=== PATIENT | female | born 1960 | race Caucasian/White ===

== ENCOUNTER → 2022-07-10 10:18 | Outpatient (BNVA) | payer OTHER, SELFPAY | PROVIDERS: PCP Internal Medicine; Visit Provider Student in an Organized Health Care Education/Training Program | DX: Z13.89 Encounter for screening for other disorder (principal) ==

== ENCOUNTER 2022-10-16 13:53 | Outpatient (AMB) | payer OTHER, SELFPAY ==
[2022-10-16 14:10] VITALS: BP 126/82; PULSE 90; TEMP 36.7; O2SAT 95; BMI 41.2
--- NOTE | 2022-10-16 14:10 | A.OFFVIS_ITS ---
Intake Vital Signs 10/16/22 14:10 Height 5 ft 2 in Weight 225 lb 8.526 oz BMI 41.2 BP 126/82 Blood Pressure Location Rt brachial Position Sitting Pulse 90 Pulse Source Pulse Oximeter Temp 98.0 F Temp Source Skin Pulse Oximetry (%) 95 Intake Visit Reasons: RA Intake Note: Pt seen today for RA follow up. Rehabilitation Worker Required: No Accompanied by: Self / Same As Patient Allergies aspirin Allergy (Mild, Verified 10/16/22 14:11) Unknown trazodone Allergy (Mild, Verified 10/16/22 14:11) Unknown Medication List - Last Reconciled 10/16/22 by Lennox Osullivan MD famotidine 40 mg PO BEDTIME PRN folic acid 1 mg PO DAILY hydroxychloroquine two tab daily alternating with one tab daily methotrexate sodium 20 mg (8 x 2.5 mg) PO QWEEK nortriptyline 10 - 20 mg PO BEDTIME omeprazole 20 mg PO DAILY prednisone 5 mg PO DAILY PRN sulfasalazine 1,000 mg (2 x 500 mg) PO BID HPI HPI Comments History of Present Illness Details 62-year-old female with seropositive RA returns for follow-up. Doing better overall after restarting methotrexate. She is currently on methotrexate 8 tabs once weekly split dose, sulfasalazine 1000 mg Twice daily and hydroxychloroquine 400 mg daily alternating with 200 mg daily. States that since starting methotrexate she feels improvement with regards to her joint pain. She continues to get intermittent flares of pain in her wrists, toes. But better overall than last visit. Has not use prednisone since last visit Initial history: This is a 62-year-old female with a past medical history of rheumatoid arthritis who presents as a new patient. Her previous parking lot manager left the practice. Patient stated that she was diagnosed 2005 and she was on hydroxychloroquine and sulfasalazine for many years with good control of her RA. She was also on ibuprofen daily. Around 2014 methotrexate was added due to incomplete control of her RA with good results. Her RA has been fairly stable until the last 1-2 years when she started having GI upset. Methotrexate was discontinued around December 2021, switched to leflunomide. Patient had an EGD and esophageal stricture was found as well as the gastric ulcer. A sulfa gel stricture was dilated. Ibuprofen was discontinued and patient was started on omeprazole with good control of her symptoms. No longer has GI upset. Over the last 5-6 months patient's RA has been more active. She gets almost weekly flares affecting different joints such as her ankles, feet, elbows, wrist s, shoulders. Now she takes prednisone 10 mg once or twice a week with good control of her symptoms. [facility], [facility] Medical History Esophageal stricture Gastric ulcer Rheumatoid arthritis Squamous cell carcinoma of left shoulder Surgical History H/O tubal ligation S/P dilatation of esophageal stricture Family History Mother Diabetes Lung cancer Sister Thyroid disease Dementia Brother COPD (chronic obstructive pulmonary disease) Father HTN (hypertension) Colon cancer Social History Household Members: Significant Other Alcohol intake: current Patient Tobacco Use Status: Former Tobacco user Current occupational status: employed Current occupation: senior supplier quality engineer for [employer] Review of Systems Resp Reports no additional complaints Musc Reports arthralgias, Reports joint swelling and Reports stiffness Physical Exam Vital Signs: Last Vital Signs Temp 98.0 F 10/16/22 14:10 Pulse 90 10/16/22 14:10 BP 126/82 10/16/22 14:10 Pulse Ox 95 10/16/22 14:10 BMI result Body Mass Index 41.2 Const General: cooperative, healthy appearing and comfortable Nutritional Appearance: obese morbidly obese Orientation/consciousness: patient oriented x3 Limitations: no limitations HEENT Head: Yes normocephalic and Yes atraumatic Resp Effort & Inspection: normal respiratory effort and able to speak in complete sentences Neuro General: patient oriented x3 Extrem Other: Bilateral wrist pain with full flexion and extension No pain at the MCPs or PIPs bilaterally. Right 2nd MTP tenderness Negative MCP squeeze test bilaterally Right elbow pain with full flexion and full extension Normal range of motion of both shoulders Normal nailfold capillaroscopy Assessment & Plan Assessment & Plan (1) Rheumatoid arthritis: Comment: +RF+CCP dx around 2005 SSZ + HCQ + Ibuprofen started initially then MTX added around 2014 MTX DC 12/29 due to Gastric ulcers, switched to leflunomide ineffective MTX restarted 07/2022 effective Code(s): M06.9 - Rheumatoid arthritis, unspecified Qualifiers: Rheumatoid arthritis location: multiple sites Rheumatoid factor presence: unspecified presence Qualified Code(s): M06.9 - Rheumatoid arthritis, unspecified Plan: This is a 62-year-old female with rheumatoid arthritis who presents for follow- up. Her RA is fairly well controlled on methotrexate 20 mg weekly split dose, sulfasalazine 1000 mg Twice daily and hydroxychloroquine 200 mg daily alternating with 400 mg daily. Labs done but not received Her RA is fairly well controlled on current regimen. If labs show significantly elevated inflammatory markers will consider increasing methotrexate to 25 mg weekly. Infectious screening: Hepatitis panel T spot negative 2022 Labs before next visit in 3 months (2) High risk medication use: Code(s): Z79.899 - Other supervisor intermediates (current) drug therapy Plan: Side effects of methotrexate were discussed with the patient in detail including oral ulcers, elevated LFTs, abdominal discomfort, and possible pancytopenia is. Will monitor patient for side effects with frequent lab work. Advised patient to take folic acid daily to prevent complications of methotrexate. Patient is aware of risk of retinopathy with hydroxychloroquine. She is overdue for an eye exam. Patient will schedule an appointment with her cadence specialists soon Plan I spent 27 minutes reviewing patient's chart, evaluating patient, ordering diagn ostic workup, counseling patient and documenting in the chart Orders: Orders Comprehensive Met. Panel 3 Months M06.9 - Rheumatoid arthritis, unspecified C Reactive Protein 3 Months M06.9 - Rheumatoid arthritis, unspecified Complete Blood Count Auto Diff 3 Months M06.9 - Rheumatoid arthritis, unspecified Erythrocyte Sedimentation Rate 3 Months M06.9 - Rheumatoid arthritis, unspecified Coding Level of Care Code Est Pt Level 4 (88552) Diagnoses Rheumatoid arthritis M06.9 Rheumatoid arthritis location: multiple sites Rheumatoid factor presence: unspecified presence High risk medication use Z79.899
== END 2022-10-16 14:48 | disposition home or self-care (01) ==
PROVIDERS: PCP Internal Medicine; Visit Provider Student in an Organized Health Care Education/Training Program
DX: M06.9 Rheumatoid arthritis, unspecified (principal); Z79.899 Other long term (current) drug therapy
CPT/HCPCS: 99214

== ENCOUNTER → 2022-10-16 13:53 | Outpatient (BNVA) | payer OTHER, SELFPAY | PROVIDERS: PCP Internal Medicine; Visit Provider Student in an Organized Health Care Education/Training Program ==

== ENCOUNTER 2023-01-14 15:54 | Outpatient (AMB) | payer OTHER, SELFPAY ==
--- NOTE | 2023-01-14 15:56 | A.OFFVIS_ITS ---
Intake Vital Signs 01/14/23 15:57 Height 5 ft 2 in Weight 232 lb 5.875 oz BMI 42.5 BP 138/86 Blood Pressure Location Rt brachial Position Sitting Pulse 103 H Pulse Source Pulse Oximeter Intake Visit Reasons: RA Intake Note: Pt last seen 10/16/22, presents today for follow up and test results. Mtx 20mg weekly, sulfasalazine bid and Plaquenil. Intrusion Analyst Required: No Accompanied by: Self / Same As Patient Allergies aspirin Allergy (Mild, Verified 01/14/23 16:03) Unknown trazodone Allergy (Mild, Verified 01/14/23 16:03) Unknown Medication List - Last Reconciled 01/14/23 by Lennox Osullivan MD famotidine 40 mg PO BEDTIME PRN folic acid 1 mg PO DAILY hydroxychloroquine two tab daily alternating with one tab daily methotrexate sodium 15 mg (6 x 2.5 mg) PO QWEEK nortriptyline 10 - 20 mg PO BEDTIME omeprazole 20 mg PO DAILY prednisone 5 mg PO DAILY PRN sulfasalazine 1.5 grams (3 x 500 mg) PO BID HPI HPI Comments History of Present Illness Details 62-year-old female with seropositive RA returns for follow-up. She is on methotrexate 15 mg weekly, sulfasalazine 1000 mg Twice daily and hydroxychloroquine. States that over the last 2 months or so she has been having more frequent flare-ups of pain in her wrists and knuckles. She also gets charley horse cramping pain in her ankles, worse at night. She has to get up and walk to get them to go way. She has used prednisone 5 mg about 6 times since last visit. She mentioned that she fell 2 months ago on a slippery floor and broke her right elbow, she was in a sling for a few weeks and did PT. Her elbow pain resolved Initial history: This is a 62-year-old female with a past medical history of rheumatoid arthritis who presents as a new patient. Her previous manufacturing quality inspector left the practice. Patient stated that she was diagnosed 2005 and she was on hydroxychloroquine and sulfasalazine for many years with good control of her RA. She was also on ibuprofen daily. Around 2014 methotrexate was added due to incomplete control of her RA with good results. Her RA has been fairly stable until the last 1-2 years when she started having GI upset. Methotrexate was discontinued around December 2021, switched to leflunomide. Patient had an EGD and esophageal stricture was found as well as the gastric ulcer. A sulfa gel stricture was dilated. Ibuprofen was discontinued and patient was started on omeprazole with good control of her symptoms. No longer has GI upset. Over the last 5-6 months patient's RA has been more active. She gets almost weekly flares affecting different joints such as her ankles, feet, elbows, wrists, shoulders. Now she takes prednisone 10 mg once or twice a week with good control of her symptoms. [facility] Medical History Esophageal stricture Gastric ulcer Squamous cell carcinoma of left shoulder Rheumatoid arthritis Surgical History S/P dilatation of esophageal stricture H/O tubal ligation Family History Mother Diabetes Lung cancer Sister Thyroid disease Dementia Brother COPD (chronic obstructive pulmonary disease) Father HTN (hypertension) Colon cancer Social History Household Members: Significant Other Alcohol intake: current Patient Tobacco Use Status: Former Tobacco user Current occupational status: employed Current occupation: lighting engineer for [employer] Review of Systems Resp Reports no additional complaints Musc Reports arthralgias, Reports joint swelling, Reports muscle cramps and Reports stiffness Physical Exam Vital Signs: Last Vital Signs Pulse 103 H 01/14/23 15:57 BP 138/86 01/14/23 15:57 BMI result Body Mass Index 42.5 Const General: cooperative, healthy appearing and comfortable Nutritional Appearance: obese morbidly obese Orientation/consciousness: patient oriented x3 Limitations: no limitations HEENT Head: Yes normocephalic and Yes atraumatic Resp Effort & Inspection: normal respiratory effort and able to speak in complete sentences Neuro General: patient oriented x3 Extrem Other: Right wrist pain with full flexion and extension No pain at the MCPs or PIPs bilaterally. Right 5th MTP tenderness Left medial malleolus tenderness Negative MCP squeeze test bilaterally Right elbow pain with full flexion and full extension Normal range of motion of both shoulders Normal nailfold capillaroscopy Assessment & Plan Assessment & Plan (1) Rheumatoid arthritis: Comment: +RF+CCP dx around 2005 SSZ + HCQ + Ibuprofen started initially then MTX added around 2014 MTX DC 12/29 due to Gastric ulcers, switched to leflunomide ineffective MTX restarted 07/2022 effective Code(s): M06.9 - Rheumatoid arthritis, unspecified Qualifiers: Rheumatoid arthritis location: multiple sites Rheumatoid factor presence: unspecified presence Qualified Code(s): M06.9 - Rheumatoid arthritis, unspecified Plan: This is a 62-year-old female with rheumatoid arthritis who presents for follow- up. She is on methotrexate 15 mg weekly, sulfasalazine 1000 mg Twice daily and hydroxychloroquine 400 mg daily alternating with 200 mg daily. Since methotrexate was lowered from 20 mg to 15 mg (due to transaminitis), she has been having more frequent flare-ups of RA. Inflammatory markers are high. Will need to advance DMARDs. Increase sulfasalazine to 1500 mg Twice daily, continue methotrexate 15 mg weekly and hydroxychloroquine 400 mg daily alternating with 200 mg daily Infectious screening: Hepatitis panel T spot negative 2022 Labs before next visit in 10 weeks (2) High risk medication use: Code(s): Z79.899 - Other equal opportunity officer (current) drug therapy Plan: Monitor safety labs. Patient had transaminitis with methotrexate at 20 mg weekly, resolved on 15 mg Patient is aware of risk of retinopathy with hydroxychloroquine. She has an appointment with an resource conservation manager in the coming 2 months (3) Immunization counseling: Code(s): Z71.85 - Encounter for immunization safety counseling Plan: Discussed ACR vaccination guidelines for adults with autoimmune rheumatic disease. Patient will be getting her COVID booster soon. Patient said that she does not get the flu vaccine. Advised patient to hold methotrexate for 1 dose after COVID booster Plan I spent 27 minutes reviewing patient's chart, evaluating patient, ordering diagnostic workup, counseling patient and documenting in the chart Orders: Orders Complete Blood Count Auto Diff 10 Weeks M06.9 - Rheumatoid arthritis, unspecified Comprehensive Met. Panel 10 Weeks M06.9 - Rheumatoid arthritis, unspecified C Reactive Protein 10 Weeks M06.9 - Rheumatoid arthritis, unspecified Erythrocyte Sedimentation Rate 10 Weeks M06.9 - Rheumatoid arthritis, unspecified Medications: New prednisone 5 mg PO DAILY PRN 30 tabs 1RF pain Changed From sulfasalazine 1,000 mg (2 x 500 mg) PO BID 120 tabs 3RF M06.9 - Rheumatoid arthritis, unspecified To sulfasalazine 1.5 grams (3 x 500 mg) PO BID 120 tabs 3RF M06.9 - Rheumatoid arthritis, unspecified Coding Level of Care Code Est Pt Level 4 (86848) Diagnoses Rheumatoid arthritis involving multiple sites, unspecified whether rheumatoid factor present M06.9 Rheumatoid arthritis location: multiple sites Rheumatoid factor presence: unspecified presence High risk medication use Z79.899 Immunization counseling Z71.85
[2023-01-14 15:57] VITALS: BP 138/86; PULSE 103; BMI 42.5
== END 2023-01-14 16:22 | disposition home or self-care (01) ==
PROVIDERS: PCP Internal Medicine; Visit Provider Student in an Organized Health Care Education/Training Program
DX: M06.9 Rheumatoid arthritis, unspecified (principal); Z79.899 Other long term (current) drug therapy; Z71.85 Encounter for immunization safety counseling
CPT/HCPCS: 99214

== ENCOUNTER → 2023-01-14 15:54 | Outpatient (BNVA) | payer OTHER, SELFPAY | PROVIDERS: PCP Internal Medicine; Visit Provider Student in an Organized Health Care Education/Training Program ==

== ENCOUNTER 2023-03-25 14:37 | Outpatient (AMB) | payer OTHER, SELFPAY ==
--- NOTE | 2023-03-25 14:54 | A.OFFVIS_ITS ---
Intake Vital Signs 03/25/23 14:55 Height 5 ft 2 in Weight 235 lb 14.314 oz BMI 43.1 BP 118/82 Blood Pressure Location Rt brachial Position Sitting Pulse 83 Pulse Source Pulse Oximeter Temp 97.2 F Temp Source Skin Pulse Oximetry (%) 96 Oxygen Delivery Method Room Air Intake Visit Reasons: RA Intake Note: Pt last seen 01/14/23 presents today for follow up and test results. Has eye appt 04/10/23 Loans Consultant Required: No Accompanied by: Self / Same As Patient Allergies aspirin Allergy (Mild, Verified 03/25/23 14:57) Unknown trazodone Allergy (Mild, Verified 03/25/23 14:57) Unknown Medication List - Last Reconciled 03/25/23 by Lennox Osullivan MD folic acid 1 mg PO DAILY hydroxychloroquine two tab daily alternating with one tab daily methotrexate sodium 15 mg (6 x 2.5 mg) PO QWEEK nortriptyline 10 - 20 mg PO BEDTIME omeprazole 20 mg PO DAILY prednisone 5 mg PO DAILY PRN sulfasalazine 1.5 grams (3 x 500 mg) PO BID HPI HPI Comments History of Present Illness Details 62-year-old female with seropositive RA returns for follow-up. She is on methotrexate 15 mg weekly, sulfasalazine 1500 mg Twice daily and hydroxychloroquine. Sulfasalazine was increased to 1500 mg Twice daily last visit. She states that it has not caused any side effects and she states that she no longer has the cramping feeling of her lower extremities at night. She has been having flares of other joints however including her wrists, shoulders, feet. Yesterday she was having right wrist pain and today she is having right foot pain. Has been using prednisone 5-10 mg daily over the last few weeks. Most recent prednisone dose was yesterday. Initial history: This is a 62-year-old female with a past medical history of rheumatoid arthritis who presents as a new patient. Her previous butcher or smallgoods maker left the practice. Patient stated that she was diagnosed 2005 and she was on hydroxychloroquine and sulfasalazine for many years with good control of her RA. She was also on ibuprofen daily. Around 2014 methotrexate was added due to incomplete control of her RA with good results. Her RA has been fairly stable until the last 1-2 years when she started having GI upset. Methotrexate was discontinued around December 2021, switched to leflunomide. Patient had an EGD and esophageal stricture was found as well as the gastric ulcer. A sulfa gel stricture was dilated. Ibuprofen was discontinued and patient was started on omeprazole with good control of her symptoms. No longer has GI upset. Over the last 5-6 months patient's RA has been more active. She gets almost weekly flares affecting different joints such as her ankles, feet, elbows, wrists, shoulders. Now she takes prednisone 10 mg once or twice a week with good control of her symptoms. [facility] Medical History (Updated 03/25/23 @ 15:34 by Lennox Osullivan MD) Esophageal stricture Gastric ulcer Squamous cell carcinoma of left shoulder Rheumatoid arthritis Surgical History S/P dilatation of esophageal stricture H/O tubal ligation Family History Mother Diabetes Lung cancer Sister Thyroid disease Dementia Brother COPD (chronic obstructive pulmonary disease) Father HTN (hypertension) Colon cancer Social History Household Members: Significant Other Alcohol intake: current Patient Tobacco Use Status: Former Tobacco user Current occupational status: employed 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 [employer] Review of Systems Resp Reports no additional complaints Musc Reports arthralgias, Reports joint swelling, Denies muscle cramps and Reports stiffness Physical Exam Vital Signs: Last Vital Signs Temp 97.2 F 03/25/23 14:55 Pulse 83 03/25/23 14:55 BP 118/82 03/25/23 14:55 Pulse Ox 96 03/25/23 14:55 Oxygen Delivery Method Room Air 03/25/23 14:55 BMI result Body Mass Index 43.1 Const General: cooperative, healthy appearing and comfortable Nutritional Appearance: obese morbidly obese Orientation/consciousness: patient oriented x3 Limitations: no limitations HEENT Head: Yes normocephalic and Yes atraumatic Resp Effort & Inspection: normal respiratory effort and able to speak in complete sentences Neuro General: patient oriented x3 Extrem Other: Right wrist pain with full flexion and extension No pain at the MCPs or PIPs bilaterally. Left 2nd PIP swelling Negative MCP squeeze test bilaterally Normal range of motion of elbows and shoulders without pain Right medial malleolus tenderness Right 1st through 5th MTP tenderness Bilateral trochanteric bursa area tenderness Normal nailfold capillaroscopy Assessment & Plan Assessment & Plan (1) Rheumatoid arthritis: Comment: +RF+CCP dx around 2005 SSZ + HCQ + Ibuprofen started initially then MTX added around 2014 MTX DC 12/29 due to Gastric ulcers, switched to leflunomide ineffective MTX restarted 07/2022 effective reduced to 15 mg due transamintis SSZ increased from 2 g to 3 g 01/2023 partially effective Code(s): M06.9 - Rheumatoid arthritis, unspecified Qualifiers: Rheumatoid arthritis location: multiple sites Rheumatoid factor presence: unspecified presence Qualified Code(s): M06.9 - Rheumatoid arthritis, unspecified Plan: This is a 62-year-old female with rheumatoid arthritis who presents for follow- up. She is on methotrexate 15 mg weekly, sulfasalazine 1500 mg Twice daily and hydroxychloroquine 400 mg daily alternating with 200 mg daily. 5-10 mg of prednisone daily Increasing sulfasalazine dose did help but she continues to have flare-ups of inflammatory arthritis. She has high inflammatory markers and has multiple tender joints on exam today despite taking prednisone Will need to add DMARDs. Discussed risks and benefits of TNF inhibitors. Patient agreed to proceed. Will start prior authorization for Enbrel Increase folic acid to 2 mg daily Infectious screening: Hepatitis panel T spot negative 2022 Labs before next visit in 3 months (2) High risk medication use: Code(s): Z79.899 - Other predatory animal exterminator (current) drug therapy Plan: Monitor safety labs. Patient had transaminitis with methotrexate at 20 mg weekly, resolved on 15 mg. Discussed risks of TNF inhibitors such as increased risk of infections, injection site reactions, increased risk of skin malignancies. Patient has increased risk of skin cancer given her history of squamous cell carcinoma of the skin in 2015 s/p excision in addition to taking a TNF inhibitor and methotrexate. Advised patient to get a yearly skin exam by Cold Working Inspector (3) Long-term use of hydroxychloroquine: Code(s): Z79.899 - Other predatory animal exterminator (current) drug therapy Plan: Patient is aware of risk of retinopathy with hydroxychloroquine.? She has an appointment with an assistant professor of forestry next month Plan I spent 27 minutes reviewing patient's chart, evaluating patient, ordering diagnostic workup, counseling patient and documenting in the chart Orders: Orders Comprehensive Met. Panel 3 Months M06.9 - Rheumatoid arthritis, unspecified Complete Blood Count Auto Diff 3 Months M06.9 - Rheumatoid arthritis, unspecified C Reactive Protein 3 Months M06.9 - Rheumatoid arthritis, unspecified Erythrocyte Sedimentation Rate 3 Months M06.9 - Rheumatoid arthritis, unspecified Medications: Changed From folic acid 1 mg PO DAILY 90 tabs 1RF To folic acid 2 mg (2 x 1 mg) PO DAILY 180 tabs 1RF Coding Level of Care Code Est Pt Level 4 (18069) Diagnoses Rheumatoid arthritis involving multiple sites, unspecified whether rheumatoid factor present M06.9 Rheumatoid arthritis location: multiple sites Rheumatoid factor presence: unspecified presence High risk medication use Z79.899 Long-term use of hydroxychloroquine Z79.899
[2023-03-25 14:55] VITALS: BP 118/82; PULSE 83; TEMP 36.2; O2SAT 96; BMI 43.1
== END 2023-03-25 15:31 | disposition home or self-care (01) ==
PROVIDERS: PCP Internal Medicine; Visit Provider Student in an Organized Health Care Education/Training Program
DX: M06.9 Rheumatoid arthritis, unspecified (principal); Z79.899 Other long term (current) drug therapy
CPT/HCPCS: 99214

== ENCOUNTER → 2023-03-25 14:37 | Outpatient (BNVA) | payer OTHER, SELFPAY | PROVIDERS: PCP Internal Medicine; Visit Provider Student in an Organized Health Care Education/Training Program ==

== ENCOUNTER 2023-07-08 13:50 | Outpatient (AMB) | payer OTHER, SELFPAY ==
--- NOTE | 2023-07-08 14:04 | A.OFFVIS_ITS ---
Vital Signs 07/08/23 14:05 Height 5 ft 2 in Weight 233 lb 11.04 oz BMI 42.7 BP 142/68 H Blood Pressure Location Rt brachial Position Sitting Pulse 83 Pulse Source Pulse Oximeter Pulse Oximetry (%) 93 Oxygen Delivery Method Room Air Intake Visit Reasons: RA Intake Note: Patient last seen 03/25/23 presents today for follow up and test results. [facility] in [place]. Program Developer Required: No Accompanied by: Self / Same As Patient Allergies aspirin Allergy (Mild, Verified 07/08/23 14:08) Unknown trazodone Allergy (Mild, Verified 07/08/23 14:08) Unknown Medication List - Last Reconciled 07/08/23 by Lennox Osullivan MD Enbrel SureClick (etanercept) 50 mg subcut QWEEK NS folic acid 1 mg PO DAILY hydroxychloroquine two tab daily alternating with one tab daily methotrexate sodium 15 mg (6 x 2.5 mg) PO QWEEK nortriptyline 10 - 20 mg PO BEDTIME omeprazole 20 mg PO DAILY prednisone 5 mg PO DAILY PRN sulfasalazine 1 g PO BID HPI Comments Details: 63-year-old female with seropositive RA returns for follow-up. She started Enbrel 2 months and a half ago. She feels much better on it. Denies any joint pain or swelling. Was not Vonnie recently and was able to ambulate without any joint pain. She remains on methotrexate 15 mg weekly, sulfasalazine 1.5 g Twice daily, hydroxychloroquine 400 mg daily alternating with 200 mg daily and folic acid 2 mg daily. Has not used prednisone since last visit. Initial history: This is a 62-year-old female with a past medical history of rheumatoid arthritis who presents as a new patient. Her previous critical care educator left the practice. Patient stated that she was diagnosed 2005 and she was on hydroxychloroquine and sulfasalazine for many years with good control of her RA. She was also on ibuprofen daily. Around 2014 methotrexate was added due to incomplete control of her RA with good results. Her RA has been fairly stable until the last 1-2 years when she started having GI upset. Methotrexate was discontinued around December 2021, switched to leflunomide. Patient had an EGD and esophageal stricture was found as well as the gastric ulcer. A sulfa gel stricture was dilated. Ibuprofen was discontinued and patient was started on omeprazole with good control of her symptoms. No longer has GI upset. Over the last 5-6 months patient's RA has been more active. She gets almost weekly flares affecting different joints such as her ankles, feet, elbows, wrists, shoulders. Now she takes prednisone 10 mg once or twice a week with good control of her symptoms. [facility] Medical History Esophageal stricture Gastric ulcer Squamous cell carcinoma of left shoulder Rheumatoid arthritis Surgical History S/P dilatation of esophageal stricture H/O tubal ligation Family History Mother Diabetes Lung cancer Sister Thyroid disease Dementia Brother COPD (chronic obstructive pulmonary disease) Father HTN (hypertension) Colon cancer Social History Household Members: Significant Other Alcohol intake: current Patient Tobacco Use Status: Former Tobacco user Current occupational status: employed Current occupation: environmental engineering technician for [employer] Review of Systems Musc Denies arthralgias, Denies joint swelling and Denies stiffness Physical Exam Vital Signs: Last Vital Signs Pulse 83 07/08/23 14:05 BP 142/68 H 07/08/23 14:05 Pulse Ox 93 07/08/23 14:05 Oxygen Delivery Method Room Air 07/08/23 14:05 BMI result Body Mass Index 42.7 Const General: cooperative, healthy appearing and comfortable Nutritional Appearance: obese morbidly obese Orientation/consciousness: patient oriented x3 Limitations: no limitations HEENT Head: Yes normocephalic and Yes atraumatic Resp Effort & Inspection: normal respiratory effort and able to speak in complete sentences Auscultation: clear to auscultation bilaterally Cardio Rate: regular rate Rhythm: regular rhythm Heart sounds: S1 normal heart sound present and S2 normal heart sound present Neuro General: patient oriented x3 Extrem Other: No active synovitis today Normal nailfold capillaroscopy Assessment & Plan Assessment & Plan (1) Rheumatoid arthritis: Comment: +RF+CCP dx around 2005 SSZ + HCQ + Ibuprofen started initially then MTX added around 2014 MTX DC 12/29 due to Gastric ulcers, switched to leflunomide ineffective MTX restarted 07/2022 effective reduced to 15 mg due transamintis SSZ increased from 2 g to 3 g 01/2023 partially effective, reduced to 2g 06/2023 Enbrel 03/2023 effective Code(s): M06.9 - Rheumatoid arthritis, unspecified Category: Medical Qualifiers: Rheumatoid arthritis location: multiple sites Rheumatoid factor presence: unspecified presence Qualified Code(s): M06.9 - Rheumatoid arthritis, unspecified Plan: This is a 63-year-old female with rheumatoid arthritis who presents for follow- up. She is on methotrexate 15 mg weekly, sulfasalazine 1500 mg Twice daily and hydroxychloroquine 400 mg daily alternating with 200 mg daily. Enbrel was started last visit with significant improvement. Not use any prednisone last visit. Denies any joint pain or swelling. There is no active synovitis on exam. Inflammatory markers normal. Reduce sulfasalazine to 1 g Twice daily Continue Enbrel 50 mg weekly Methotrexate 15 mg weekly Hydroxychloroquine 400 mg daily alternating with 200 mg daily Ongoing macrocytosis, reduce folic acid back to 1 mg daily and add leucovorin 5 mg weekly Labs before next visit in 3 months (2) High risk medication use: Code(s): Z79.899 - Other termite helper (current) drug therapy Category: Medical Plan: Monitor safety labs. Patient had transaminitis with methotrexate at 20 mg weekly, resolved on 15 mg. Discussed risks of TNF inhibitors such as increased risk of infections, injection site reactions, increased risk of skin malignancies. Patient has increased risk of skin cancer given her history of squamous cell carcinoma of the skin in 2015 s/p excision in addition to taking a TNF inhibitor and methotrexate. Advised patient to get a yearly skin exam by Information Systems Administrator (3) Long-term use of hydroxychloroquine: Code(s): Z79.899 - Other termite helper (current) drug therapy Category: Medical Plan: Patient is aware of risk of retinopathy with hydroxychloroquine.? Recently evaluated by resident physician in radiology. Will request most recent office visit note Plan I spent 27 minutes reviewing patient's chart, evaluating patient, ordering diagnostic workup, counseling patient and documenting in the chart Orders: Orders Comprehensive Met. Panel 3 Months M06.9 - Rheumatoid arthritis, unspecified, Z79.899 - Other termite helper (current) drug therapy C Reactive Protein 3 Months M06.9 - Rheumatoid arthritis, unspecified, Z79.899 - Other half-way (current) drug therapy Erythrocyte Sedimentation Rate 3 Months M06.9 - Rheumatoid arthritis, unspecified, Z79.899 - Other termite helper (current) drug therapy Complete Blood Count Auto Diff 3 Months M06.9 - Rheumatoid arthritis, unsp ecified, Z79.899 - Other termite helper (current) drug therapy Medications: New leucovorin calcium Take the day after you take methotrexate 5 mg PO QWEEK 12 tabs 1RF Coding Level of Care Code Est Pt Level 4 (17915) Complex EM visit Add On G2211 Diagnoses Rheumatoid arthritis involving multiple sites, unspecified whether rheumatoid factor present M06.9 Rheumatoid arthritis location: multiple sites Rheumatoid factor presence: unspecified presence High risk medication use Z79.899 Long-term use of hydroxychloroquine Z79.899
[2023-07-08 14:05] VITALS: BP 142/68; PULSE 83; O2SAT 93; BMI 42.7
== END 2023-07-08 14:28 | disposition home or self-care (01) ==
PROVIDERS: PCP Internal Medicine; Visit Provider Student in an Organized Health Care Education/Training Program
DX: M06.9 Rheumatoid arthritis, unspecified (principal); Z79.899 Other long term (current) drug therapy
CPT/HCPCS: 99214; G2211

== ENCOUNTER → 2023-07-08 13:50 | Outpatient (BNVA) | payer OTHER, SELFPAY | PROVIDERS: PCP Internal Medicine; Visit Provider Student in an Organized Health Care Education/Training Program ==

== ENCOUNTER 2023-10-07 15:53 | Outpatient (AMB) | payer OTHER, SELFPAY ==
[2023-10-07 16:02] VITALS: BP 134/72; PULSE 74; O2SAT 95; BMI 43.3
--- NOTE | 2023-10-07 16:02 | MHC.OFFVIS ---
Vital Signs 10/07/23 16:02 Height 5 ft 2 in Weight 236 lb 15.951 oz BMI 43.3 BP 134/72 Blood Pressure Location Lt brachial Position Sitting Pulse 74 Pulse Source Pulse Oximeter Pulse Oximetry (%) 95 Intake Visit Reasons: RA/CM Intake Note: Patient last seen on 07/08/23 present today for follow up and test results. Allergies aspirin Allergy (Mild, Verified 10/07/23 16:04) Unknown trazodone Allergy (Mild, Verified 10/07/23 16:04) Unknown Medication List - Last Reconciled 10/07/23 by Lennox Osullivan MD Enbrel SureClick (etanercept) 50 mg subcut QWEEK NS folic acid 2 mg (2 x 1 mg) PO DAILY hydroxychloroquine two tab daily alternating with one tab daily leucovorin calcium 5 mg PO QWEEK methotrexate sodium 15 mg (6 x 2.5 mg) PO QWEEK nortriptyline 10 - 20 mg PO BEDTIME omeprazole 20 mg PO DAILY prednisone 5 mg PO DAILY PRN sulfasalazine 1 g PO BID HPI Comments Details: 63-year-old female with seropositive RA returns for follow-up. She is on Enbrel weekly, methotrexate 15 mg weekly, sulfasalazine 1000 mg Twice daily, hydroxychloroquine 4 mg alternating with 20 mg daily, folic acid 1 mg daily and Leucovorin 5 mg weekly. She states that she is doing very well overall. She states that the Enbrel for about 6 days then she starts to feel achy and stiff. No significant differences since last visit. Has not use prednisone since she started Enbrel 5-6 months ago Initial history: This is a 62-year-old female with a past medical history of rheumatoid arthritis who presents as a new patient. Her previous printer maintainer left the practice. Patient stated that she was diagnosed 2005 and she was on hydroxychloroquine and sulfasalazine for many years with good control of her RA. She was also on ibuprofen daily. Around 2014 methotrexate was added due to incomplete control of her RA with good results. Her RA has been fairly stable until the last 1-2 years when she started having GI upset. Methotrexate was discontinued around December 2021, switched to leflunomide. Patient had an EGD and esophageal stricture was found as well as the gastric ulcer. A sulfa gel stricture was dilated. Ibuprofen was discontinued and patient was started on omeprazole with good control of her symptoms. No longer has GI upset. Over the last 5-6 months patient's RA has been more active. She gets almost weekly flares affecting different joints such as her ankles, feet, elbows, wrists, shoulders. Now she takes prednisone 10 mg once or twice a week with good control of her symptoms. [facility] Medical History Esophageal stricture Gastric ulcer Squamous cell carcinoma of left shoulder Rheumatoid arthritis Surgical History S/P dilatation of esophageal stricture H/O tubal ligation Family History Mother Diabetes Lung cancer Sister Thyroid disease Dementia Brother COPD (chronic obstructive pulmonary disease) Father HTN (hypertension) Colon cancer Social History Household Members: Significant Other Alcohol intake: current Patient Tobacco Use Status: Former Tobacco user Current occupational status: employed Current occupation: aerospace engineer officer armament for [employer] Female Reproductive History Menstrual Total pregnancies: 0 Review of Systems Musc Denies arthralgias, Denies joint swelling and Denies stiffness Physical Exam Vital Signs: Last Vital Signs Pulse 74 10/07/23 16:02 BP 134/72 10/07/23 16:02 Pulse Ox 95 10/07/23 16:02 BMI result Body Mass Index 43.3 Const General: cooperative, healthy appearing and comfortable Nutritional Appearance: obese morbidly obese Orientation/consciousness: patient oriented x3 Limitations: no limitations HEENT Head: Yes normocephalic and Yes atraumatic Resp Effort & Inspection: normal respiratory effort and able to speak in complete sentences Auscultation: clear to auscultation bilaterally Cardio Rate: regular rate Rhythm: regular rhythm Heart sounds: S1 normal heart sound present and S2 normal heart sound present Neuro General: patient oriented x3 Extrem Other: No active synovitis today Bilateral knee crepitus Normal nailfold capillaroscopy Assessment & Plan Assessment & Plan (1) Rheumatoid arthritis: Comment: +RF+CCP dx around 2005 SSZ + HCQ + Ibuprofen started initially then MTX added around 2014 MTX DC 12/29 due to Gastric ulcers, switched to leflunomide ineffective MTX restarted 07/2022 effective reduced to 15 mg due transamintis SSZ increased from 2 g to 3 g 01/2023 partially effective, reduced to 2g 06/2023 Enbrel 03/2023 effective Code(s): M06.9 - Rheumatoid arthritis, unspecified Category: Medical Qualifiers: Rheumatoid arthritis location: multiple sites Rheumatoid factor presence: unspecified presence Qualified Code(s): M06.9 - Rheumatoid arthritis, unspecified Plan: This is a 63-year-old female with rheumatoid arthritis who presents for follow-up. She is on methotrexate 15 mg weekly, sulfasalazine 1000 mg Twice daily and hydroxychloroquine 400 mg daily alternating with 200 mg daily. She is doing quite well overall. She states that Enbrel works quite well for about 6 days then she starts to feel achy and stiff Reduce sulfasalazine to 500 mg Twice daily Continue Enbrel 50 mg weekly Methotrexate 15 mg weekly Hydroxychloroquine 400 mg daily alternating with 200 mg daily Continue folic acid 1 mg daily and Leucovorin 5 mg weekly Labs before next visit in 4 months (2) High risk medication use: Code(s): Z79.899 - Other environmental remediation engineer (current) drug therapy Category: Medical Plan: Monitor safety labs. Patient had transaminitis with methotrexate at 20 mg weekly, resolved on 15 mg. Discussed risks of TNF inhibitors such as increased risk of infections, injection site reactions, increased risk of skin malignancies. Patient has increased risk of skin cancer given her history of squamous cell carcinoma of the skin in 2015 s/p excision in addition to taking a TNF inhibitor and methotrexate. Advised patient to get a yearly skin exam by Tile Fitter (3) Long-term use of hydroxychloroquine: Code(s): Z79.899 - Other environmental remediation engineer (current) drug therapy Category: Medical Plan: Patient is aware of risk of retinopathy with hydroxychloroquine.? Recently evaluated by starchmaker. Patient states that she was recently evaluated by eye physicians at [place]. Records not available to us. She will call them and request they send over the report Plan I spent 27 minutes reviewing patient's chart, evaluating patient, ordering diagnostic workup, counseling patient and documenting in the chart Orders: Orders Complete Blood Count Auto Diff 4 Months M06.9 - Rheumatoid arthritis, unspecified, Z79.899 - Other residential (current) drug therapy Comprehensive Met. Panel 4 Months M06.9 - Rheumatoid arthritis, unspecified, Z79.899 - Other environmental remediation engineer (current) drug therapy Erythrocyte Sedimentation Rate 4 Months M06.9 - Rheumatoid arthritis, unspecified, Z79.899 - Other residential (current) drug therapy C Reactive Protein 4 Months M06.9 - Rheumatoid arthritis, unspecified, Z79.899 - Other environmental remediation engineer (current) drug therapy Medications: Changed From sulfasalazine 1 g PO BID M06.9 - Rheumatoid arthritis, unspecified To sulfasalazine 0.5 grams PO BID M06.9 - Rheumatoid arthritis, unspecified Coding Level of Care Code Est Pt Level 4 (15409) Diagnoses Rheumatoid arthritis involving multiple sites, unspecified whether rheumatoid factor present M06.9 Rheumatoid arthritis location: multiple sites Rheumatoid factor presence: unspecified presence High risk medication use Z79.899 Long-term use of hydroxychloroquine Z79.899
== END 2023-10-07 16:25 | disposition home or self-care (01) ==
PROVIDERS: PCP Internal Medicine; Visit Provider Student in an Organized Health Care Education/Training Program
DX: M06.9 Rheumatoid arthritis, unspecified (principal); Z79.899 Other long term (current) drug therapy
CPT/HCPCS: 99214

== ENCOUNTER → 2023-10-07 15:53 | Outpatient (BNVA) | payer OTHER, SELFPAY | PROVIDERS: PCP Internal Medicine; Visit Provider Student in an Organized Health Care Education/Training Program ==

== ENCOUNTER 2024-02-09 15:52 | Outpatient (AMB) | payer OTHER, SELFPAY ==
[2024-02-09 15:53] VITALS: BP 122/74; PULSE 90; O2SAT 96; BMI 43.6
--- NOTE | 2024-02-09 15:53 | A.OFFVIS_ITS ---
Vital Signs 02/09/24 15:53 Height 5 ft 2 in Weight 238 lb 8.642 oz BMI 43.6 BP 122/74 Blood Pressure Location Lt brachial Position Sitting Pulse 90 Pulse Source Pulse Oximeter Pulse Oximetry (%) 96 Oxygen Delivery Method Room Air Intake Visit Reasons: RA/LM Intake Note: Patient last seen by Doctor Lennox Osullivan on 10/07/23. Presents today for RA follow up and test results. Allergies aspirin Allergy (Mild, Verified 10/07/23 16:04) Unknown trazodone Allergy (Mild, Verified 10/07/23 16:04) Unknown Medication List - Last Reconciled 02/09/24 by Lennox Osullivan MD Enbrel SureClick (etanercept) INJECT 1 PEN SUBCUTANEOUSLY WEEKLY NS folic acid 2 mg (2 x 1 mg) PO DAILY hydroxychloroquine two tab daily alternating with one tab daily leucovorin calcium 5 mg PO QWEEK methotrexate sodium 15 mg (6 x 2.5 mg) PO QWEEK nortriptyline 10 - 20 mg PO BEDTIME omeprazole 20 mg PO DAILY prednisone 5 mg PO DAILY PRN sulfasalazine 0.5 grams PO BID HPI Comments Details: 63-year-old female with seropositive RA returns for follow-up. She is on Enbrel weekly, methotrexate 15 mg weekly, sulfasalazine 500 mg Twice daily, hydroxychloroquine 400 mg alternating with 200 mg daily, folic acid 1 mg daily and Leucovorin 5 mg weekly. She states that she has been doing reasonably well overall. She has been more active. She is selling her house soon so she has been on her feet. She has been having left ankle pain as well as pain and swelling on the dorsal aspect of her left foot. She has noticed that a few weeks ago. Initial history: This is a 62-year-old female with a past medical history of rheumatoid arthritis who presents as a new patient. Her previous alteration workroom supervisor left the practice. Patient stated that she was diagnosed 2005 and she was on hydroxychloroquine and sulfasalazine for many years with good control of her RA. She was also on ibuprofen daily. Around 2014 methotrexate was added due to incomplete control of her RA with good results. Her RA has been fairly stable until the last 1-2 years when she started having GI upset. Methotrexate was discontinued around December 2021, switched to leflunomide. Patient had an EGD and esophageal stricture was found as well as the gastric ulcer. A sulfa gel stricture was dilated. Ibuprofen was discontinued and patient was started on omeprazole with good control of her symptoms. No longer has GI upset. Over the last 5-6 months patient's RA has been more active. She gets almost weekly flares affecting different joints such as her ankles, feet, elbows, wrists, shoulders. Now she takes prednisone 10 mg once or twice a week with good control of her symptoms. 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 Reproductive History Menstrual Total pregnancies: 0 Review of Systems Musc Reports arthralgias and Reports joint swelling Physical Exam Vital Signs: Last Vital Signs Pulse 90 02/09/24 15:53 BP 122/74 02/09/24 15:53 Pulse Ox 96 02/09/24 15:53 Oxygen Delivery Method Room Air 02/09/24 15:53 BMI result Body Mass Index 43.6 Const General: cooperative, healthy appearing and comfortable Nutritional Appearance: obese morbidly obese Orientation/consciousness: patient oriented x3 Limitations: no limitations HEENT Head: Yes normocephalic and Yes atraumatic Resp Effort & Inspection: normal respiratory effort and able to speak in complete sentences Auscultation: clear to auscultation bilaterally Cardio Rate: regular rate Rhythm: regular rhythm Heart sounds: S1 normal heart sound present and S2 normal heart sound present Neuro General: patient oriented x3 Extrem Other: No active synovitis today Bilateral knee crepitus Soft tissue swelling on the dorsal aspect of the left foot slightly tender, the swelling is over the navicular bone Normal nailfold capillaroscopy Assessment & Plan Assessment & Plan (1) Rheumatoid arthritis: Comment: +RF+CCP dx around 2005 SSZ + HCQ + Ibuprofen started initially then MTX added around 2014 MTX DC 12/29 due to Gastric ulcers, switched to leflunomide ineffective MTX restarted 07/2022 effective reduced to 15 mg due transamintis SSZ increased from 2 g to 3 g 01/2023 partially effective, reduced to 2g 06/2023 Enbrel added 03/2023 effective Code(s): M06.9 - Rheumatoid arthritis, unspecified Category: Medical Qualifiers: Rheumatoid arthritis location: multiple sites Rheumatoid factor presence: unspecified presence Qualified Code(s): M06.9 - Rheumatoid arthritis, unspecified Plan: This is a 63-year-old female with rheumatoid arthritis who presents for follow- up. She is on methotrexate 15 mg weekly, sulfasalazine 500 mg Twice daily and hydroxychloroquine 400 mg daily alternating with 200 mg daily. She is doing quite well overall. There is no active synovitis. She does have mild soft tissue swelling over her left foot navicular bone. This may be a rheumatoid nodule. Unfortunately there is no treatment that has been consistently effective for rheumatoid nodules. Advised patient to wear soft shoes that are well supported. If no improvement in a few means. Consider evaluation by plastic extrusion operator Continue sulfasalazine to 500 mg Twice daily Continue Enbrel 50 mg weekly Methotrexate 15 mg weekly Hydroxychloroquine 400 mg daily alternating with 200 mg daily Continue folic acid 1 mg daily and Leucovorin 5 mg weekly Labs in 3 months and in 6 months before next visit (2) High risk medication use: Code(s): Z79.899 - Other [place] [facility] (current[facility] drug therapy Category: Medical Plan: Monitor safety labs. Patient had transaminitis with methotrexate at 20 mg weekly, resolved on 15 mg. Discussed risks of TNF inhibitors such as increased risk of infections, injection site reactions, increased risk of skin malignancies. Patient has increased risk of skin cancer given her history of squamous cell carcinoma of the skin in 2015 s/p excision in addition to taking a TNF inhibitor and methotrexate. Advised patient to get a yearly skin exam by Civil Transportation Engineer (3) Long-term use of hydroxychloroquine: Code(s): Z79.899 - Other long term care social worker (current) drug therapy Category: Medical Plan: Patient is aware of risk of retinopathy with hydroxychloroquine.? Recently evaluated by food production associate in April or May of 2023. I will attempt to retrieve records Plan I spent 27 minutes reviewing patient's chart, evaluating patient, ordering diagnostic workup, counseling patient and documenting in the chart Orders: Orders C Reactive Protein 3 Months M06.9 - Rheumatoid arthritis, unspecified, Z79.899 - Other [place] [facility] (current[facility] drug therapy C Reactive Protein 6 Months M06.9 - Rheumatoid arthritis, unspecified, Z79.899 - Other long term care social worker (current) drug therapy Complete Blood Count Auto Diff 3 Months M06.9 - Rheumatoid arthritis, unspecified, Z79.899 - Other [place] [facility] (current) drug therapy Comprehensive Met. Panel 3 Months M06.9 - Rheumatoid arthritis, unspecified, Z79.899 - Other [place] [facility] (current[facility] drug therapy Erythrocyte Sedimentation Rate 3 Months M06.9 - Rheumatoid arthritis, unspecified, Z79.899 - Other [place] [facility] (current) drug therapy Complete Blood Count Auto Diff 6 Months M06.9 - Rheumatoid arthritis, unspecified, Z79.899 - Other [place] [facility] (current) drug therapy Comprehensive Met. Panel 6 Months M06.9 - Rheumatoid arthritis, unspecified, Z79.899 - Other long term care social worker (current) drug therapy Erythrocyte Sedimentation Rate 6 Months M06.9 - Rheumatoid arthritis, unspecified, Z79.899 - Other long term care social worker (current) drug therapy Coding Level of Care Code Est Pt Level 4 (60139) Complex EM visit Add On G2211 Diagnoses Rheumatoid arthritis involving multiple sites, unspecified whether rheumatoid factor present M06.9 Rheumatoid arthritis location: multiple sites Rheumatoid factor presence: unspecified presence High risk medication use Z79.899 Long-term use of hydroxychloroquine Z79.899
== END 2024-02-09 16:17 | disposition home or self-care (01) ==
PROVIDERS: PCP Internal Medicine; Visit Provider Student in an Organized Health Care Education/Training Program
DX: M06.9 Rheumatoid arthritis, unspecified (principal); Z79.899 Other long term (current) drug therapy
CPT/HCPCS: 99214

== ENCOUNTER → 2024-02-09 15:52 | Outpatient (BNVA) | payer OTHER, SELFPAY | PROVIDERS: PCP Internal Medicine; Visit Provider Student in an Organized Health Care Education/Training Program ==